=== PATIENT | female | born 1960 | race Caucasian/White ===

== ENCOUNTER 2022-12-01 09:21 | Outpatient (CLI) | payer OTHER ==
[2022-12-01 09:35] LABS: BASOPHILS # (AUTO) 0.1 10^3/uL (0.0-0.1); BASOPHILS % (AUTO) 0.8 %; EOSINOPHILS # (AUTO) 0.2 10^3/uL (0.0-0.7); EOSINOPHILS % (AUTO) 2.1 %; HCT - HEMATOCRIT 41.9 % (37.0-47.0); HGB - HEMOGLOBIN 13.9 g/dL (12.0-16.0); LYMPHOCYTES # (AUTO) 2.7 10^3/uL (1.5-3.5); LYMPHOCYTES % (AUTO) 30.8 %; MEAN CORPUSCULAR HGB CONC 33.2 g/dL (32.0-36.0); MEAN CORPUSCULAR VOLUME 90.3 fL (81.0-99.0); MEAN PLATELET VOLUME 9.6 fL (7.9-10.8); MONOCYTES # (AUTO) 0.8 10^3/uL (0.0-1.0); MONOCYTES % (AUTO) 9.3 %; NEUTROPHILS % (AUTO) 56.8 %; PLT - PLATELET COUNT 301 10^3/uL (130-450); RED BLOOD COUNT 4.64 10^6/uL (4.20-5.40); RED CELL DISTRIBUTION WIDTH 12.5 % (12.0-15.0); WHITE BLOOD COUNT 8.7 x10^3/uL (4.8-10.8)
[2022-12-01 09:49] LABS: ALBUMIN 4.5 g/dL (3.2-5.5); ALBUMIN/GLOBULIN RATIO 1.6 (1.0-2.2); ALKALINE PHOSPHATASE 75 IU/L (42-121); ALT ALANINE AMINOTRANSFERASE 20 IU/L (10-60); AST ASPARTATE AMINOTRANSFERASE 15 IU/L (10-42); BILIRUBIN,TOTAL 0.6 mg/dL (0.2-1.0); BUN - BLOOD UREA NITROGEN 17 mg/dL (6-20); CALCIUM 9.8 mg/dL (8.5-10.3); CARBON DIOXIDE - CO2 33 mmol/L (21-32); CHLORIDE 97 mmol/L (101-111); CHOL/HDL RATIO 3.2 (<4.4); CHOLESTEROL 200 mg/dL; CREATININE 0.9 mg/dL (0.6-1.3); GFR - MDRD 64 (>89); GLUCOSE 110 mg/dL (74-104); HDL CHOLESTEROL 63 mg/dL; LDL CHOLESTEROL,CALCULATED 105 mg/dL; LDL/HDL RATIO 1.7 (<4.4); POTASSIUM 4.3 mmol/L (3.5-4.5); SODIUM 136 mmol/L (135-145); TOTAL PROTEIN 7.3 g/dL (6.4-8.9); TRIGLYCERIDES 158 mg/dL (48-352); VLDL CHOLESTEROL 32 mg/dL
[2022-12-01 10:43] LABS: ESTIMATED AVERAGE GLUCOSE 120 mg/dL (70-100); HEMOGLOBIN A1c% 5.8 % (4.27-6.07)
== END 2022-12-01 09:22 | disposition home or self-care (01) ==
LOC: LAB 09:21
PROVIDERS: ATTEND Physician Assistant
DX: I10 Essential (primary) hypertension (principal); E78.5 Hyperlipidemia, unspecified; R73.03 Prediabetes
CPT/HCPCS: 36415; 80053; 80061; 83036; 83721; 85025

== ENCOUNTER 2023-10-18 06:53 | Outpatient (CLI) | payer OTHER ==
--- NOTE | 2023-10-18 14:54 | MRI Report ---
PROCEDURE: Thoracic Spine WO INDICATIONS: THORACIC BACK PAIN,DDD LUMBAR SPINE TECHNIQUE: Noncontrast sagittal T1 spine echo and T2 fast spin echo, sagittal STIR, axial T1 and T2 fast spin ec ho through the thoracic spine. COMPARISON: None. FINDINGS: Image quality: Excellent. Alignment and Curvature: There is normal bony alignment. Bone Marrow: Marrow is of normal overall signal. No acute vertebral body compression fractures. Spinal Cord: Visualized spinal cord is normal in size and signal. Paraspinous Soft Tissues: No paravertebral masses. Miscellaneous: Multilevel disc desiccation and loss. Multiple small posterior disc bulges. There is no significant central canal stenosis. Mild right neuroforaminal stenosis at T11-T12 and T12-L1. Mild left neuroforaminal stenosis at T10-T11. Otherwise, the neural foramina are widely patent. IMPRESSION: Multilevel degenerative changes of the lumbar spine without significant central canal stenosis. Mild neuroforaminal stenosis of the lower thoracic spine as described above. Reviewed by: Yonatan Fabian MD on 10/18/2023 2:53 PM PDT Approved by: Yonatan Fabian MD on 10/18/2023 2:53 PM PDT Station ID: [id number]
--- NOTE | 2023-10-18 14:58 | MRI Report ---
PROCEDURE: Lumbar Spine WO INDICATIONS: THORACIC BACK PAIN,DDD LUMBAR SPINE TECHNIQUE: Noncontrast sagittal T1 spin echo and T2 fast echo, sagittal STIR, axial T1 and T2 fast spin echo thr ough the lumbar spine. In cases with scoliosis, additional coronal T2 fast spin echo may be performe d. COMPARISON: None. FINDINGS: Image quality: Excellent. Alignment and Curvature: Mild levocurvature of the thoracic lumbar spine. Grade 1 anterolisthesis of L4 on L5.. Bone Marrow: Degenerative endplate changes, most pronounced at L3-L4. Marrow is of normal overall si gnal. No acute vertebral body compression fractures. Spinal Cord: Conus medullaris terminates at the L2-L3 level. Visualized cord demonstrates normal si gnal and size. Paraspinous Soft Tissues: No paravertebral masses. T12-L1: Disc desiccation and height loss. Mild posterior disc bulge. No significant central canal st enosis. Facet arthropathy. Mild right and left neuroforaminal stenosis. L1-L2: Disc desiccation and mild disc bulge. Facet arthropathy. No central canal stenosis. Mild bi lateral neuroforaminal stenosis. L2-L3: Facet arthropathy and thickening of ligamenta flava. No central canal stenosis. Mild bilate ral neural foraminal stenosis. L3-L4: Disc desiccation and moderate disc height loss. Posterior disc bulge. Facet arthropathy and thickening of ligamentum flavum. Epidural lipomatosis. Severe central canal stenosis. Mild to moderat e bilateral foraminal stenosis. L4-L5: Disc desiccation and mild disc height loss. Mild disc bulge. Facet arthropathy and thickenin g of ligamenta flava. Moderate central canal stenosis. Moderate left and [id number] right neura l foraminal stenosis. L5-S1: Disc desiccation. Facet arthropathy and thickening of the ligamentum flavum. No significant central canal stenosis. No significant neural foraminal stenosis. IMPRESSION: 1.Multilevel degenerative changes of the lumbar spine as described above. 2.Severe central canal stenosis at L3-L4. 3.Moderate neuroforaminal stenosis on the left L4-L5. Other levels of mild neural foraminal stenosis as described above. Reviewed by: Yonatan Sherwood MD on 10/18/2023 2:56 PM PDT Approved by: Yonatan Sherwood MD on 10/18/2023 2:56 PM PDT Station ID: [id number]
== END 2023-10-18 06:54 | disposition home or self-care (01) ==
LOC: DI 06:53
PROVIDERS: ATTEND Physician Assistant
DX: M51.34 Other intervertebral disc degeneration, thoracic region (principal); M48.04 Spinal stenosis, thoracic region; M51.36 Other intervertebral disc degeneration, lumbar region; M48.061 Spinal stenosis, lumbar region without neurogenic claudication; M47.816 Spondylosis without myelopathy or radiculopathy, lumbar region; M51.37 Other intervertebral disc degeneration, lumbosacral region; M47.817 Spondylosis without myelopathy or radiculopathy, lumbosacral region